=== PATIENT | male | born 1940 | race Caucasian/White ===

== ENCOUNTER 2017-07-21 12:52 | Outpatient (CLI) | payer MEDICARE ==
--- NOTE | 2017-07-21 14:06 | RAD ---
PA AND LATERAL CHEST: History: Dyspnea. FINDINGS: Comparison made with exam of 02-26-16. Heart size is normal. The aorta is tortuous. Chronic changes are again seen. No lobar consolidation, pneumothoraces or pleural effusions are identified. IMPRESSION: No radiographic evidence of acute cardiopulmonary process. POS: [facility]
== END 2017-07-21 12:53 | disposition home or self-care (01) ==
LOC: RAD 12:52
PROVIDERS: ATTEND Internal Medicine Critical Care Medicine
DX: R06.00 Dyspnea, unspecified (principal)
CPT/HCPCS: 71046

== ENCOUNTER 2017-09-24 13:05 | Outpatient (CLI) | payer MEDICARE ==
--- NOTE | 2017-09-24 15:41 | CT ---
HIGH RESOLUTION CT CHEST: 09/24/17 Axial tomograms obtained through the chest at 10 mm intervals following high resolution protocol. INDICATIONS: Idiopathic pulmonary fibrosis, shortness of breath. FINDINGS: There are chronic lung parenchymal changes. There are mild bullous changes in both apices. Prominent bullous changes are seen in the posterior lower lobes bilaterally with large bulla present. There is fibrotic stranding. Very mild interstitial thickening is seen peripherally. There is no ground glass opacities. IMPRESSION: Hyperexpansion with chronic lung parenchymal changes. There are early bulla changes in the apices and there are prominent bullous changes in the posterior aspect of both lower lobes. There is stranding and mild peripheral interstitial prominence. Findings are not classic for [facility]IP. POS: [facility]
== END 2017-09-24 13:06 | disposition home or self-care (01) ==
LOC: CT 13:05
PROVIDERS: ATTEND Family Medicine
DX: J84.112 Idiopathic pulmonary fibrosis (principal); R91.8 Other nonspecific abnormal finding of lung field
CPT/HCPCS: 71250; 94060; 94727; 94729